=== PATIENT | female | born 1970 | race Caucasian/White ===

== ENCOUNTER → 2016-04-07 | Outpatient (CLI) | payer MEDICAID ==
--- NOTE | 2016-04-07 18:19 | XR ---
EXAMINATION TYPE: XR lumbar spine 2 or 3V DATE OF EXAM: 04/07/2016 5:39 PM COMPARISON: 12/12/2011 HISTORY: Chronic back pain TECHNIQUE: 3 views FINDINGS: There are rods and screws fusing posteriorly lumbar spine at L5-S1. There is a disc prosthe sis at L5-S1. Vertebrae have normal alignment. I see no compression fracture. Sacroiliac joints are n ormal. There is no significant disc space narrowing. IMPRESSION: Previous surgery. No fracture. No adverse change compared to old exam.
== END | disposition home or self-care (01) ==
LOC: RADXRMAIN 17:21
PROVIDERS: ATTEND Internal Medicine Geriatric Medicine
DX: M54.89 Other dorsalgia (principal); Z98.890 Other specified postprocedural states
CPT/HCPCS: 72100

== ENCOUNTER → 2016-08-04 | Outpatient (CLI) | payer MEDICAID ==
--- NOTE | 2016-08-12 07:07 | MM ---
Reason for exam: screening (asymptomatic). Last mammogram was performed 3 years and 9 months ago. History: Patient had first child at age 34. Physical Findings: A clinical breast exam by your physician is recommended on an annual basis and results should be correlated with mammographic findings. MG 3D Screening Mammo W/Cad Bilateral CC and MLO view(s) were taken. Prior study comparison: July 28, 2014, mammogram, performed at [facility]. November 15, 2012, bilateral digital screening mammo w/CAD. Developing asymmetry in the right CC view, short term follow up recommended. ASSESSMENT: Probably benign, BI-RAD 3 RECOMMENDATION: Follow-up diagnostic mammogram of the right breast in 6 months.
== END | disposition home or self-care (01) ==
LOC: RADMAMWWP 09:52
PROVIDERS: ATTEND Obstetrics & Gynecology
DX: Z12.31 Encounter for screening mammogram for malignant neoplasm of breast (principal); R92.8 Other abnormal and inconclusive findings on diagnostic imaging of breast
CPT/HCPCS: 77063; G0202; 36415; 80053; 80061; 83001; 83002; 83036; 84439; 84443; 85025

== ENCOUNTER → 2016-08-04 | Outpatient (CLI) | payer MEDICAID ==
[2016-08-04 10:02] LABS: Basophils % (A) 0 %; CHCM 34.3; Eosinophils # (A) 0.2 k/uL (0-0.7); Eosinophils % (A) 3 %; HCT 40.4 % (34.0-46.0); HDW 2.58; HGB 13.5 gm/dL (11.4-16.0); Luc # (Auto) 0.16; Luc % (Auto) 3; Lymphocytes # (A) 1.7 k/uL (1.0-4.8); Lymphocytes % (A) 26 %; MCH 32.3 pg (25.0-35.0); MCHC 33.4 g/dL (31.0-37.0); MCV 96.6 fL (80.0-100.0); Mean Platelet Volume 7.7; Monocytes # (A) 0.3 k/uL (0-1.0); Monocytes % (A) 5 %; Neutrophils # (A) 4.1 k/uL (1.3-7.7); Neutrophils % (A) 64 %; RBC 4.18 m/uL (3.80-5.40); RDW 13.3 % (11.5-15.5); WBC 6.4 k/uL (3.8-10.6); WBC (Perox) 6.76
[2016-08-04 10:23] LABS: ALT 29 U/L (9-52); AST 20 U/L (14-36); Alkaline Phosphatase 67 U/L (38-126); Anion Gap 9 mmol/L; Blood Urea Nitrogen 12 mg/dL (7-17); Calcium 9.1 mg/dL (8.4-10.2); Carbon Dioxide 26 mmol/L (22-30); Chloride 105 mmol/L (98-107); Cholesterol 179 mg/dL (<200); Glucose 91 mg/dL (74-99); HDL Cholesterol 68 mg/dL (40-60); Non-African American GFR(MDRD) >60 (>60 ml/min/1.73 sqM); Potassium 4.5 mmol/L (3.5-5.1); Sodium 140 mmol/L (137-145); Total Bilirubin 0.7 mg/dL (0.2-1.3); Triglycerides 90 mg/dL (<150)
[2016-08-04 12:36] LABS: Follicle Stimulating Hormone <0.7 mIU/mL
== END | disposition home or self-care (01) ==
LOC: LABWHC1 09:40
PROVIDERS: ATTEND Internal Medicine Geriatric Medicine
DX: Z00.00 Encounter for general adult medical examination without abnormal findings (principal); F32.9 Major depressive disorder, single episode, unspecified; E83.52 Hypercalcemia; E78.00 Pure hypercholesterolemia, unspecified; G50.0 Trigeminal neuralgia; N95.1 Menopausal and female climacteric states
CPT/HCPCS: 36415; 80053; 80061; 83001; 83002; 83036; 84439; 84443; 85025

== ENCOUNTER → 2017-01-05 | Outpatient (CLI) | payer MEDICAID ==
--- NOTE | 2017-01-05 09:18 | MM ---
Reason for exam: follow-up at short interval from prior study. Last mammogram was performed 5 months ago. History: Patient had first child at age 34. Physical Findings: Nurse did not find any significant physical abnormalities on exam. MG 3D Diag Mammo W/Cad RT CC and MLO view(s) were taken of the right breast. Prior study comparison: August 04, 2016, bilateral MG 3d screening mammo w/cad. July 28, 2014, mammogram, performed at [facility]. The breast tissue is heterogeneously dense. This may lower the sensitivity of mammography. There is no discrete abnormality. No significant new findings when compared with previous films. These results were verbally communicated with the patient and result sheet given to the patient on 01/05/17. ASSESSMENT: Negative, BI-RAD 1 RECOMMENDATION: Return to routine screening mammogram schedule for both breasts. Back on schedule.
== END | disposition home or self-care (01) ==
LOC: RADMAMWWP 08:21
PROVIDERS: ATTEND Obstetrics & Gynecology
DX: R92.8 Other abnormal and inconclusive findings on diagnostic imaging of breast (principal)
CPT/HCPCS: G0206; G0279

== ENCOUNTER → 2018-04-28 | Outpatient (CLI) | payer MEDICAID ==
--- NOTE | 2018-04-29 06:41 | MR ---
EXAMINATION TYPE: MR lumbar spine wo/w con DATE OF EXAM: 04/28/2018 COMPARISON: Prior MRI June 16, 2011. HISTORY: History of prior surgery 2005 and around 2011 with acute on chronic low back pain. TECHNIQUE: Multiplanar, multisequence images of the lumbar spine is performed without and with IV contrast, util izing 7.5 mL intravenous Gadavist FINDINGS: Sagittal images of the lumbar spine show vertebral body heights and alignment to remain sat isfactory. There is new artifact from posterior fusion hardware and artificial disc material L5-S1 le david. Heterogeneous Modic type II endplate changes at this level remain present. Multilevel disc desic cation is seen superior to this. There is mild disc space narrowing L3-L4 redemonstrated. There is ne w mild disc space narrowing L4-L5 level seen with small posterior disc herniation evident on sagittal images new from prior. The conus medullaris remains normal in position and signal ending mid L1 leve l. Scattered small hemangiomas are redemonstrated. No suspicious enhancement is seen. Posterior disc herniation T11-T12 level sagittal image 9 effaces anterolateral thecal sac. Axial images at the and at the T12-L1 level which is felt within normal limits. Axial images at the L 1-L2 and L2-L3 levels remain within normal limits. Axial images at the L3-L4 level redemonstrate mild broad based posterior disc protrusion minimally ef facing anterior thecal sac, bilateral neural foramina are patent. No significant change from prior. Axial images at the L4-L5 level show new left paracentral/foraminal disc protrusion on axial image 8 effacing anterolateral thecal sac, bilateral neural foramina are patent. Artifact from posterior fusi on hardware begins. Mild facet degenerative changes bilaterally at this level are redemonstrated. Axial images at the L5-S1 level show artifact from posterior fusion hardware and disc material. Spina l canal is preserved. Left-sided neural foramina is patent. Right-sided neural foramina shows mild to moderate narrowing felt from scar tissue seen best sagittal image 12. No suspicious incidental retroperitoneal findings are seen. IMPRESSION: Interval surgery L5-S1 level with satisfactory alignment. Increasing degenerative changes adjacent L4-L5 level noted.
== END ==
LOC: RADMRIMAIN 19:48
PROVIDERS: ATTEND Internal Medicine Geriatric Medicine
DX: M47.816 Spondylosis without myelopathy or radiculopathy, lumbar region (principal); Z98.890 Other specified postprocedural states
CPT/HCPCS: 72158; A9585

== ENCOUNTER → 2018-05-06 | Outpatient (CLI) | payer MEDICAID ==
--- NOTE | 2018-05-07 10:05 | MM ---
Reason for exam: screening (asymptomatic). Last mammogram was performed 1 year and 4 months ago. History: Patient is postmenopausal and had first child at age 34. Physical Findings: A clinical breast exam by your physician is recommended on an annual basis and results should be correlated with mammographic findings. MG 3D Screening Mammo W/Cad Bilateral CC and MLO view(s) were taken. Prior study comparison: January 05, 2017, right breast MG 3d diag mammo w/cad RT. August 04, 2016, bilateral MG 3d screening mammo w/cad. The breast tissue is heterogeneously dense. This may lower the sensitivity of mammography. No suspicious abnormality. No significant changes when compared with prior studies. ASSESSMENT: Negative, BI-RAD 1 RECOMMENDATION: Routine screening mammogram of both breasts in 1 year.
== END ==
LOC: RADMAMWWP 08:04
PROVIDERS: ATTEND Family Medicine
DX: Z12.31 Encounter for screening mammogram for malignant neoplasm of breast (principal)
CPT/HCPCS: 77063; 77067

== ENCOUNTER → 2018-07-02 | Outpatient (CLI) | payer MEDICAID ==
[2018-07-02 10:59] LABS: Basophils % (A) 1 %; Eosinophils # (A) 0.1 k/uL (0-0.7); Eosinophils % (A) 2 %; HCT 44.3 % (34.0-46.0); HGB 14.6 gm/dL (11.4-16.0); Lymphocytes # (A) 1.8 k/uL (1.0-4.8); Lymphocytes % (A) 35 %; MCH 30.9 pg (25.0-35.0); MCHC 32.8 g/dL (31.0-37.0); MCV 94.2 fL (80.0-100.0); Mean Platelet Volume 8.3; Monocytes # (A) 0.3 k/uL (0-1.0); Monocytes % (A) 7 %; Neutrophils # (A) 2.6 k/uL (1.3-7.7); Neutrophils % (A) 52 %; Platelet Count 328 k/uL (150-450)
[2018-07-02 16:20] LABS: Albumin 4.9 g/dL (3.80-4.90); Albumin/Globulin Ratio 2.72 (1.60-3.17); Anion Gap 9.3 mmol/L (4.00-12.00); Calcium 9.6 mg/dL (8.7-10.3); Carbon Dioxide 28.7 mmol/L (21.6-31.8); Globulin 1.8 g/dL (1.6-3.3); LDL Cholesterol,Calculated 129.2 mg/dL (0.0-131.0); Potassium 4.4 mmol/L (3.5-5.5); Total Bilirubin 0.6 mg/dL (0.2-1.2); Total Protein 6.7 g/dL (6.2-8.2); VLDL Calculation 21.8 mg/dL (5.00-40.00)
[2018-07-02 16:28] LABS: T4, Free (Free Thyroxine) 1.1 ng/dL (0.80-1.80)
[2018-07-02 18:50] LABS: Hemoglobin A1C 5.1 % (4.0-6.0)
== END ==
LOC: LABWHC1 08:12
PROVIDERS: ATTEND Internal Medicine Geriatric Medicine
DX: Z00.00 Encounter for general adult medical examination without abnormal findings (principal); E78.2 Mixed hyperlipidemia; E55.9 Vitamin D deficiency, unspecified
CPT/HCPCS: 36415; 80053; 80061; 82306; 83036; 84439; 84443; 85025

== ENCOUNTER → 2019-04-05 | Outpatient (CLI) | payer MEDICAID | END | disposition home or self-care (01) | LOC: LABWHC1 10:13 | PROVIDERS: ATTEND Internal Medicine Geriatric Medicine | DX: E55.9 Vitamin D deficiency, unspecified (principal) | CPT/HCPCS: 36415; 82652 ==

== ENCOUNTER → 2019-09-28 | Outpatient (CLI) | payer MEDICAID ==
[2019-09-28 08:21] VITALS: BP 132/91; PULSE 94; RESP 16
--- NOTE | 2019-09-28 09:32 | P.PAINCN ---
History of Present Illness - Reason for Consult Consult date: 09/27/19 - History of Present Illness This is a 49-year-old patient referred by Dr. Ramirez with a chief complaint of chronic pain in the right buttock, radiating to posterior and lateral thigh, lateral calf up to heal. The patient has a history of lumbar discectomy in 2005 and lumbar spinal fusion at L5-S1 in 2010. Of note, approximately 8 years ago she was followed in the pain clinic and underwent epidural steroid injections and radiofrequency ablation of the lumbar spine. Since her fusion in 2010, she has had intermittent pain on and off, which has been well controlled with intermittent steroid dose packs. However, in January 2019 she reports a flare in her pain, she was given a steroid Dosepak, however on completion of the steroid Dosepak the pain returned. Approximately 6 weeks ago she was started on Lyrica. She reports that this medication has been significantly helping her pain, she currently rates her pain as 0/10, however 2 weeks ago her pain was 6/10. Pain is described as sharp, aching and worse with sitting, activity and better with medications. Patient has been taking medications from primary care physician including Lyrica and baclofen with good relief. Patient has mild side effects in the form of dry mouth. Patient denies new-onset weakness, bowel/bladder incontinence, or any other signs or symptoms of cauda equina syndrome. There are no signs of acute intoxication, and no indications of medication diversion or overuse. Patient has had physical therapy a long time ago, she is not currently doing any exercises. In addition to above, 13-point review of systems is also negative for chest pain, shortness of breath, changes in vision, changes in hearing, new onset weakness, abdominal pain, diarrhea, extreme fatigue, malaise, fever, skin changes, homicidal or suicidal ideation, or bowel or bladder incontinence. Physical exam: Vital Signs: Reviewed in EMR GENERAL: Well appearing, in no acute distress PSYCH: Mood and affect is appropriate. Awake, alert, and oriented SKIN: Skin color, texture, turgor normal, no rashes or lesions HEENT: Normocephalic, atraumatic. EOM intact CV: No pedal edema RESP: Respirations are unlabored, no audible wheezing GI: Abdomen non-distended MUSCULOSKELETAL: Bilateral lower extremity strength is normal and symmetric. No atrophy or tone abnormalities are noted. Lumbar spine: Straight leg raising in the sitting position is negative for radicular pain. Mild tenderness to palpation over the lumbar spine and paraspinous muscles. Mildly positive for pain with facet loading and back extension/rotation. Buttocks: No pain to palpation over the PSIS, Julieta test is negative Extremities: Peripheral joint ROM is full and pain free without obvious instability or laxity in all four extremities. No edema or skin discolorations noted. Gait: Gait is normal NEUR: Bilateral lower extremity coordination and muscle stretch reflexes are physiologic and symmetric. Negative clonus. No loss of sensation is noted. Cranial nerves are grossly intact. Imaging: MRI lumbar spine done at [facility] on 04/28/2018 shows posterior fusion hardware at L5-S1. Right-sided neural foraminal narrowing from scar tissue at L5-S1. At L4-5 new left paracentral disc protrusion effacing the thecal sac, bilateral neuroforamen are patent. Mild degenerative changes bilaterally at L4- 5. Posterior disc herniation at T11-12. Assessment: 1. Lumbar degenerative disc disease 2. Lumbar spondylosis 3. Prior back surgery Plan: 1. Explanation: Diagnoses, prognoses, and multiple treatment options including but not limited to physical therapy, interventional therapies, medication management and surgery were discussed with the patient and all questions were answered to the patient's satisfaction. 2. Investigations: MRI lumbar spine reviewed 3. Counseling: The patient was counseled on the importance of EXERCISE. 4. Procedures: None currently, if pain returns, we will schedule her for L4-5 epidural steroid injectionright paramedian approach 5. Consultations: Referral given to physical therapy for lumbar stretching and strengthening exercises, core strengthening exercises 6. Medications: Continue Lyrica and baclofen 7. Disposition: As needed for above-mentioned procedure Medications and Allergies Home Medications Medication Instructions Recorded Confirmed Type Baclofen 10 mg PO TID 09/28/19 09/28/19 History Pregabalin [Lyrica] 50 mg PO BID 09/28/19 09/28/19 History Allergies Allergy/AdvReac Type Severity Reaction Status Date / Time Penicillins Allergy Severe Rash/Hives Verified 09/28/19 08:03 PQRS Measure Charge Sheet Measure #130: Documentation of Current Meds in Medical Chart: Patient's medications documented in chart Measure #226: Tobacco Use: Screen & Cessation Intervention: Pt not a tobacco user Measure #111: Pneumonia Vaccination: Pneumococcal vaccine NOT administered or previously given Measure #47: Advance Care Plan: Advance care planning discussed & documented, pt chose/unable to give Measure #412: Opioid Treatment Agreement: No documentation of signed opioid treatment agreement Measure #408: Opioid Therapy Follow-up Evaluation: Patient had NO f/u eval minimum every 3 months during opioid therapy Measure #317: Preventitive Care & Scrn High Bld Press & F/U: Pre-hypertensive or hypertensive BP documented, pt will f/u with PCP Measure #128: Body Mass Index (BMI) Screening & Follow-up: BMI documented ABOVE normal parameters - f/u documented Measure #131: Pain Assessment & Follow-up: Pain positive & plan documented, Follow-up PRN Measure #431: Unhealthy Alcohol Use Preventative Care & Scrn: Patient not identified as an unhealthy alcohol user Home Medications: Ambulatory Orders Baclofen 10 mg PO TID 09/28/19 Pregabalin [Lyrica] 50 mg PO BID 09/28/19
== END | disposition home or self-care (01) ==
LOC: PNWHC3 07:54
PROVIDERS: ATTEND Anesthesiology
DX: G89.29 Other chronic pain (principal); M51.36 Other intervertebral disc degeneration, lumbar region; M47.816 Spondylosis without myelopathy or radiculopathy, lumbar region; M46.06 Spinal enthesopathy, lumbar region; Z98.1 Arthrodesis status; Z88.0 Allergy status to penicillin; Z79.899 Other long term (current) drug therapy
CPT/HCPCS: 99211

== ENCOUNTER → 2020-01-05 | Outpatient (CLI) | payer MEDICAID ==
--- NOTE | 2020-01-09 10:19 | MM ---
Reason for exam: screening (asymptomatic). Last mammogram was performed 1 year and 8 months ago. History: Patient is postmenopausal and had first child at age 34. Physical Findings: A clinical breast exam by your physician is recommended on an annual basis and results should be correlated with mammographic findings. MG 3D Screening Mammo W/Cad Bilateral CC and MLO view(s) were taken. Prior study comparison: May 06, 2018, bilateral MG 3d screening mammo w/cad. January 05, 2017, right breast MG 3d diag mammo w/cad RT. The breast tissue is heterogeneously dense. This may lower the sensitivity of mammography. Benign appearing calcifications in the left breast. No significant changes when compared with prior studies. ASSESSMENT: Benign, BI-RAD 2 RECOMMENDATION: Routine screening mammogram of both breasts in 1 year.
== END | disposition home or self-care (01) ==
LOC: RADMAMWWP 14:36
PROVIDERS: ATTEND Midwife
DX: Z12.31 Encounter for screening mammogram for malignant neoplasm of breast (principal)
CPT/HCPCS: 77063; 77067

== ENCOUNTER → 2020-03-30 | Outpatient (CLI) | payer MEDICAID ==
--- NOTE | 2020-03-30 10:58 | XR ---
EXAMINATION TYPE: XR cervical spine comp DATE OF EXAM: 03/30/2020 TECHNIQUE: Frontal, lateral, oblique, and open mouth view of the cervical spine are obtained. HISTORY: M54.2 COMPARISON: None FINDINGS: The cervical spine is visualized in its entirety from C1 thru the top of T1 level, it is s atisfactory in alignment without evidence of acute fracture or dislocation. The pre-vertebral soft t issue appears within normal limits. The C1-C2 articulation is within normal limits on the open mouth view. Vertebral body heights are maintained. Mild disc space narrowing C4-C5 level with [id number] rate anterior spurring. Mild to moderate spurring and disc space narrowing C5-C6 level. Mild disc sp liza narrowing C6-C7 level The oblique images show mild to moderate right-sided neural foraminal narro wing C5-C6 level due to marginal spurring. Overlying soft tissues are unremarkable. IMPRESSION: As above.
== END | disposition home or self-care (01) ==
LOC: RADXRMAIN 10:08
PROVIDERS: ATTEND Internal Medicine Geriatric Medicine
DX: M48.02 Spinal stenosis, cervical region (principal)
CPT/HCPCS: 72050

== ENCOUNTER → 2020-04-27 | Outpatient (CLI) | payer MEDICAID ==
--- NOTE | 2020-04-27 10:30 | MR ---
EXAMINATION TYPE: MR cervical spine wo/w con DATE OF EXAM: 04/27/2020 COMPARISON: Plain film 03/30/2020 HISTORY: Spinal stenosis, cervical region, connelly, neck pain, numbness in fingers TECHNIQUE: Multiplanar, multisequence images of the cervical spine were acquired utilizing 7.5 mL intravenous Ga davist gadolinium contrast. Diffusion weighted imaging was performed. C2-C3: No evidence for degenerative disc disease. No disc bulge/herniation or protrusion. No Canal stenosis. Foramina are patent bilaterally. C3-C4: No evidence for degenerative disc disease. No disc bulge/herniation or protrusion. No Canal stenosis. Foramina are patent bilaterally. C4-C5: Posterior extension endplate disc complex is present which is eccentric towards the left, ther e is some uncovertebral joint hypertrophy, some left-sided foraminal encroachment is present, no sign ificant spinal stenosis. C5-C6: Posterior extension endplate disc complex causes mild anterior mass effect on the thecal sac. Uncovertebral joint hypertrophy results in some right-sided foraminal encroachment greater than left. No significant spinal stenosis. C6-C7: Right posterior paracentral extension of endplate disc complex causes anterior mass effect on the thecal sac. No significant spinal stenosis. Mild right-sided foraminal encroachment. C7-T1: No evidence for degenerative disc disease. No disc bulge/herniation or protrusion. No Canal stenosis. Foramina are patent bilaterally. Cervical segments are intact. There is normal alignment. Cervical spinal cord is of normal signal. Cervical vertebral bodies show preserved height, there is spondylosis present C5-6 and C6-7, some mi nimal endplate discogenic marrow signal changes are present, there is loss of disc height signal at C 4-5, C5-6 and C6-7. Craniovertebral junction relationships are within normal limits. No abnormal enh ancement following contrast administration. IMPRESSION: Degenerative disc disease, foraminal encroachment as described. No significant spinal stenosis, no si zable disc herniation.
== END | disposition home or self-care (01) ==
LOC: RADMRIMAIN 09:00
PROVIDERS: ATTEND Internal Medicine Geriatric Medicine
DX: M50.30 Other cervical disc degeneration, unspecified cervical region (principal)
CPT/HCPCS: 72156; A9585

== ENCOUNTER → 2022-06-24 | Outpatient (CLI) | payer OTHER ==
--- NOTE | 2022-06-25 07:34 | MM ---
Reason for Exam: Screening (asymptomatic). Last mammogram was performed 1 year(s) and 2 month(s) ago. Patient History: Menarche at age 13. First Full-Term at age 34. Late child-bearing (after 30). Postmenopausal. Risk Values: Crystal 5 year model risk: 1.5%. NCI Lifetime model risk: 11.8%. Prior Study Comparison: 05/06/2018 Bilateral Screening Mammogram, [facility]. 01/05/2020 Bilateral Screening Mammogram, [facility]. 04/12/2021 Bilateral Screening Mammogram, [facility]. Tissue Density: The breast tissue is heterogeneously dense. This may lower the sensitivity of mammography. Findings: Analyzed By CAD. Left breast biopsy clip. There is no suspicious group of microcalcifications or new suspicious mass in either breast. Overall Assessment: Negative, BI-RAD 1 Management: Screening Mammogram of both breasts in 1 year. A clinical breast exam by your physician is recommended on an annual basis and results should be correlated with mammographic findings. [facility] will attempt to contact patient to return for supplemental views and ultrasound if indicated. Electronically signed and approved by: Chuck Hernandez DO
== END | disposition home or self-care (01) ==
LOC: RADMAMWWP 07:26
PROVIDERS: ATTEND Obstetrics & Gynecology
DX: Z12.31 Encounter for screening mammogram for malignant neoplasm of breast (principal); Z78.0 Asymptomatic menopausal state
CPT/HCPCS: 77063; 77067

== ENCOUNTER 2022-07-30 11:23 | Day surgery (SDC) | payer OTHER ==
[~2022-07-30 11:23] MED LIST: LACTATED RINGERS 1,000 ML IV SCH; LIDOCAINE 1% (10MG/ML) FOR IV START INTRADERMA PRN
[2022-07-30 11:52] VITALS: TEMP 97.8
[2022-07-30] MEDS ORDERED: PROPOFOL 10 MG/ML 20 ML VIAL IV ONE (12:47)
--- NOTE | 2022-07-30 13:06 | P.PCN ---
Date of Procedure: 07/30/22 Procedure(s) Performed: BRIEF HISTORY: Patient is a 52-year-old pleasant white female scheduled for an elective colonoscopy as a part of screening for colon cancer. PROCEDURE PERFORMED: Colonoscopy. PREOPERATIVE DIAGNOSIS: Screening for colon cancer. IV sedation per Anesthesia. PROCEDURE: After informed consent was obtained, the patient, was brought into the endoscopy unit. IV sedation was administered by Anesthesia under continuous monitoring. Digital rectal examination was normal. Initially the Olympus CF-160 flexible video colonoscope was then inserted in the rectum, gradually advanced into the cecum without any difficulty. Careful examination was performed as the scope was gradually being withdrawn. Ileocecal valve and the appendiceal orifice were visualized and appeared normal. Prep was excellent. Mucosa of the cecum, ascending colon, transverse colon, descending colon, sigmoid colon, and rectum appeared normal. Retroflexion was performed in the rectum and no lesions were seen. The patient tolerated the procedure well. IMPRESSION: Normal-appearing colon from rectum to cecum with no evidence of colorectal neoplasia. RECOMMENDATIONS: Findings of this examination were discussed with the patient as well as a family. She was advised to have a repeat screening colonoscopy in 10 years..
[2022-07-30 13:49] VITALS: BP 125/76; PULSE 78; RESP 18
== END 2022-07-30 13:50 | disposition home or self-care (01) ==
LOC: ORWHC2ENDO 11:23
PROVIDERS: ATTEND Internal Medicine Gastroenterology
DX: Z12.11 Encounter for screening for malignant neoplasm of colon (principal); E78.5 Hyperlipidemia, unspecified; Z88.0 Allergy status to penicillin; Z79.899 Other long term (current) drug therapy; Z87.891 Personal history of nicotine dependence
CPT/HCPCS: 45378; J2704

== ENCOUNTER → 2023-11-27 | Outpatient (CLI) | payer BC ==
--- NOTE | 2023-11-30 12:50 | MM ---
Reason for Exam: Screening (asymptomatic). Last mammogram was performed 1 year(s) and 5 month(s) ago. Patient History: Menarche at age 13. First Full-Term at age 34. Late child-bearing (after 30). Postmenopausal. Risk Values: Crystal 5 year model risk: 1.5%. NCI Lifetime model risk: 11.6%. Prior Study Comparison: 01/05/2020 Bilateral Screening Mammogram, [facility]. 04/12/2021 Bilateral Screening Mammogram, [facility]. 06/24/2022 Bilateral MG 3D screening mammo w/cad, [facility]. Tissue Density: The breasts are heterogeneously dense, which may obscure small masses. Findings: Analyzed By CAD. Right breast: There is no suspicious group of microcalcifications or new suspicious mass. Left breast: There is no suspicious group of microcalcifications or new suspicious mass. Benign-appearing calcifications left breast. Overall Assessment: Benign, BI-RAD 2 Management: Screening Mammogram of both breasts in [address] [facility] will attempt to contact patient to return for supplemental views and ultrasound if indicated. Patient should continue monthly self-breast exams. A clinical breast exam by your physician is recommended on an annual basis. This exam should not preclude additional follow-up of suspicious palpable abnormalities. Note on Crystal scores and lifetime risk: 1. A Crystal score greater than 3% is considered moderate risk. If this is the case, consider specialist referral to assess eligibility for a risk reducing agent. 2. If overall lifetime risk for the development of breast cancer is 20% or higher, the patient may qualify for future screening with alternating mammogram and breast MRI. [facility], , 11/30/2023 12:47 PM. Electronically signed and approved by: Chuck Hernandez DO
== END | disposition home or self-care (01) ==
LOC: RADMAMWWP 08:56
PROVIDERS: ATTEND Obstetrics & Gynecology
CPT/HCPCS: 77063; 77067